=== PATIENT | female | born 1985 | race Caucasian/White ===

== ENCOUNTER → 2018-02-10 | Outpatient (CLI) | payer OTHER ==
[~2018-02-10] MED LIST: IBUP200C8 PO; LORA10TA3 PO
[2018-02-10 15:47] LABS: BASOPHILS # (AUTO) 0.05 x10^3/uL (0-0.1); BASOPHILS % (AUTO) 0 % (0-1); EOSINOPHILS # (AUTO) 0.19 x10^3/uL (0-0.4); EOSINOPHILS % (AUTO) 2 % (1-7); LYMPHOCYTES # (AUTO) 3.25 x10^3/uL (1-3.4); LYMPHOCYTES % (AUTO) 27 % (22-44); MD NO; MEAN CORPUSCULAR HEMOGLOBIN 33.1 pg (27.0-34.8); MEAN CORPUSCULAR HGB CONC 34.2 g/dL (32.4-35.8); MEAN CORPUSCULAR VOLUME 96.6 fL (80-100); MEAN PLATELET VOLUME 8.8 fL (7.4-10.4); MONOCYTES # (AUTO) 0.69 x10^3/uL (0.2-0.8); MONOCYTES % (AUTO) 6 % (2-9); NEUTROPHILS # (AUTO) 7.74 x10^3/uL (1.8-6.8); NEUTROPHILS % (AUTO) 65 % (42-75); PLATELET COUNT 339 x10^3/uL (130-400); RED BLOOD COUNT 4.09 x10^6/uL (3.82-5.3); RED CELL DISTRIBUTION WIDTH 12.3 % (9.6-15.2)
[2018-02-10 15:55] LABS: ALANINE AMINOTRANSFERASE 16 U/L (12-78); ANION GAP 7 mmol/L (5-15); CALCIUM 8.4 mg/dL (8.5-10.1); CHLORIDE 108 mmol/L (98-107)
[2018-02-10 16:00] LABS: ALKALINE PHOSPHATASE 63 U/L (45-117); BILIRUBIN,TOTAL 0.4 mg/dL (0.2-1.0); CREATININE 0.81 mg/dL (0.55-1.02); TOTAL PROTEIN 7.7 g/dL (6.4-8.2)
[2018-02-10 16:27] LABS: INTERNATIONAL NORMALIZED RATIO 1.02 (0.93-1.1); PROTHROMBIN TIME 10.8 Seconds (9.6-11.5)
== END | disposition home or self-care (01) ==
LOC: STAR 14:49
PROVIDERS: ATTEND Specialist
DX: Z01.818 Encounter for other preprocedural examination (principal); R19.07 Generalized intra-abdominal and pelvic swelling, mass and lump
CPT/HCPCS: 36415; 80053; 84703; 85025; 85610; 85730; 86304

== ENCOUNTER 2018-02-24 05:33 | Day surgery (SDC) | payer OTHER ==
[~2018-02-24] VITALS: Ht 160 cm; Wt 83.0 kg
[2018-02-24 06:07] VITALS: BP 114/73
[2018-02-24] MEDS ORDERED: LACTATED RINGERS 1,000 ML IV SCH (06:07)
[2018-02-24] MEDS ORDERED: MIDAZOLAM 1 MG/ML, 2ML ONE (06:29)
[2018-02-24] MEDS ORDERED: NEOSTIGMINE 1 MG/ML, 10ML ONE (06:30)
[2018-02-24] MEDS ORDERED: GLYCOPYRROLATE 0.2MG/1ML, 5ML ONE (06:30)
[2018-02-24] MEDS ORDERED: ONDANSETRON 2MG/ML, 2ML ONE (06:30)
[2018-02-24] MEDS ORDERED: CEFAZOLIN 1,000 MG ONE (06:30)
[2018-02-24] MEDS ORDERED: ACETAMINOPHEN 500 MG TABLET PO ONE (06:30)
[2018-02-24] MEDS ORDERED: DEXAMETHASONE 4 MG/ML, 1ML ONE (06:30)
[2018-02-24] MEDS ORDERED: FENTANYL PF 250 MCG/5ML ONE (06:30)
[2018-02-24] MEDS ORDERED: GABAPENTIN 300 MG CAPSULE PO ONE (06:30)
[2018-02-24] MEDS ORDERED: ROCURONIUM 10MG/ML,5ML ONE (06:30)
[2018-02-24] MEDS ORDERED: PROPOFOL 10 MG/ML, 20ML ONE (06:30)
[2018-02-24] MEDS ORDERED: PROMETHAZINE 25 MG SUPP PR PRN (07:00)
[2018-02-24] MEDS ORDERED: MEPERIDINE/PF 25MG/0.5ML IVPush PRN (07:00)
[2018-02-24] MEDS ORDERED: PROMETHAZINE 25 MG/ML, 1ML IM PRN ×2 (07:00)
[2018-02-24] MEDS ORDERED: LABETALOL 5MG/ML, 20ML IV PRN (07:00)
[2018-02-24] MEDS ORDERED: HYDROmorphone 1 MG/ML, 1ML IV PRN (07:00)
[2018-02-24] MEDS ORDERED: OXYcodone 5 MG/5 ML ORAL.SOL UDC PO PRN (07:00)
[2018-02-24] MEDS ORDERED: PROMETHAZINE 12.5 MG SUPP PR PRN (07:00)
[2018-02-24] MEDS ORDERED: PROMETHAZINE 25 MG/ML, 1ML IV PRN (07:00)
[2018-02-24] MEDS ORDERED: ONDANSETRON ODT 8 MG PO PRN (07:00)
[2018-02-24] MEDS ORDERED: ONDANSETRON 2MG/ML, 2ML IV PRN (07:00)
[2018-02-24] MEDS ORDERED: hydrALAzine 20 MG/ML, 1ML IV PRN (07:00)
[2018-02-24] MEDS ORDERED: MORPHINE SULFATE 4 MG/ML, 1ML IVPush PRN (07:00)
[2018-02-24] MEDS ORDERED: EPINEPHRINE 1 MG/ML, 1ML ONE (07:08)
[2018-02-24] MEDS ORDERED: BUPIVACAINE 0.25% ONE (07:08)
[2018-02-24] MEDS ORDERED: INDOCYANINE GREEN 25 MG VIAL ONE (07:08)
[2018-02-24] MEDS ORDERED: FENTANYL PF 100 MCG/2ML ONE ×2 (08:15→08:52)
[2018-02-24] MEDS ORDERED: KETOROLAC 30 MG/1 ML ONE (08:35)
[2018-02-24] MEDS ORDERED: PROMETHAZINE 25 MG/ML, 1ML ONE (08:52)
[2018-02-24] MEDS ORDERED: OXYcodone 5 MG/5 ML ORAL.SOL UDC ONE (08:52)
[2018-02-24] MEDS: FENTANYL PF 100 MCG/2ML IV PRN ×2 (08:56→09:42)
[2018-02-24] MEDS ORDERED: MEPERIDINE/PF 50 MG/ML ONE (09:56)
== END 2018-02-24 13:28 | disposition home or self-care (01) ==
LOC: OUT 05:33
PROVIDERS: ATTEND Specialist
DX: N83.11 Corpus luteum cyst of right ovary (principal); N83.8 Other noninflammatory disorders of ovary, fallopian tube and broad ligament; Z98.890 Other specified postprocedural states; Z87.891 Personal history of nicotine dependence; Z79.899 Other long term (current) drug therapy
CPT/HCPCS: 58661; 81025; 88305; J0171; J0690; J1100; J1885; J2175; J2250; J2405; J2550; J2704; J2710; J3010; J3490; J7120